=== PATIENT | female | born 1990 | race African-American/Black ===

== ENCOUNTER 2017-09-08 23:54 | Emergency (ER) | payer MEDICAID ==
[~2017-09-08] VITALS: Ht 157.5 cm; Wt 84.0 kg
[2017-09-09 03:12] VITALS: BP 114/66
== END 2017-09-09 03:16 | disposition home or self-care (01) ==
LOC: ER 23:54
DX: K04.7 Periapical abscess without sinus (principal); Z88.6 Allergy status to analgesic agent
CPT/HCPCS: 99283